=== PATIENT | female | born 1985 | race African-American/Black ===

== ENCOUNTER 2016-10-16 20:16 | Emergency (ER) | payer BC ==
[2016-10-16 20:49] VITALS: BP 133/87
[2016-10-16] MEDS ORDERED: PREDNISONE 20 MG TABLET PO ONE (21:15)
[2016-10-16] MEDS ORDERED: FAMOTIDINE 20 MG TABLET PO ONE (21:15)
--- NOTE | 2016-10-16 21:15 | ER Document Report ---
ED Medical Screen (RME) - General Chief Complaint: Lip Swelling Stated Complaint: LIP SWELLING Time seen by provider: 21:13 Mode of Arrival: Ambulatory Information source: Patient Notes: States she ate hibachi chicken about 2 hours ago and her top lip has started swelling. No difficulty speaking no difficulty swallowing. Tongue is not swelling. States she ate the same thing a week ago no results I have greeted and performed a rapid initial assessment of this patient. A comprehensive ED assessment and evaluation of the patient, analysis of test results and completion of medical decision making process will be conducted by an additional ED providers. Physical Exam - Vital signs Vitals: Temp Pulse Resp BP Pulse Ox 98.1 F 79 16 133/87 H 98 10/16/16 20:48 10/16/16 20:48 10/16/16 20:48 10/16/16 20:48 10/16/16 20:48 Course - Vital Signs Vital signs: Temp Pulse Resp BP Pulse Ox 98.1 F 79 16 133/87 H 98 10/16/16 20:48 10/16/16 20:48 10/16/16 20:48 10/16/16 20:48 10/16/16 20:48
== END 2016-10-17 00:08 | disposition left against medical advice (07) ==
LOC: ER 20:16
DX: Z53.9 Procedure and treatment not carried out, unspecified reason (principal); R22.0 Localized swelling, mass and lump, head
CPT/HCPCS: 99281; J7512